=== PATIENT | male | born 1970 | race Caucasian/White ===

== ENCOUNTER 2023-05-20 10:48 | Outpatient (CLI) | payer BC | END 2023-05-20 10:49 | disposition home or self-care (01) | LOC: RAD 10:48 → EDBD 11:00 | PROVIDERS: ATTEND Internal Medicine | DX: R13.10 Dysphagia, unspecified (principal); K21.9 Gastro-esophageal reflux disease without esophagitis | CPT/HCPCS: 74230 ==